=== PATIENT | male | born 2000 | race Caucasian/White ===

== ENCOUNTER 2023-12-11 11:18 | Emergency (ER) | payer OTHER ==
[~2023-12-11] VITALS: Ht 175.3 cm; Wt 83.5 kg
[2023-12-11 11:25] VITALS: O2SAT 98
[2023-12-11] MEDS ORDERED: TETANUS, DIPHTHERIA, PERTUSSIS VAC/PF 0.5ML (>10YR OLD) IM ONE (13:30)
[2023-12-11] MEDS ORDERED: CEPH500C2 MT (15:24)
[2023-12-11 15:54] VITALS: BP 116/76; PULSE 101; RESP 16; TEMP 37.16964; O2SAT 98
[2023-12-11] MEDS: TETANUS, DIPHTHERIA, PERTUSSIS VAC/PF 0.5ML (>10YR OLD) IM ONE (16:08)
== END 2023-12-11 16:10 | disposition home or self-care (01) ==
LOC: ER 11:18
DX: S67.193A Crushing injury of left middle finger, initial encounter (principal); X58.XXXA Exposure to other specified factors, initial encounter; Y93.89 Activity, other specified; Y92.89 Other specified places as the place of occurrence of the external cause; Y99.8 Other external cause status
CPT/HCPCS: 73140; 90715; 90471; 99283; Z7610